=== PATIENT | female | born 1990 | race African-American/Black ===

== ENCOUNTER 2022-12-10 16:15 | Outpatient (REF) | payer OTHER, SELFPAY ==
--- NOTE | ~2022-12-10 | US_ITS ---
EXAMINATION: US THYROID CLINICAL INFORMATION: Nontoxic single thyroid nodule. COMPARISON: None available. TECHNIQUE: Linear transducer grayscale and color Doppler examination with attention to the region of the thyroid. FINDINGS: SIZE: Measurements of the thyroid lobes and nodules are given in sagittal, anteroposterior and transverse dimensions respectively. Right Thyroid Lobe: 5.4 x 2.6 x 2.8 cm, volume 19.8 mL. Parenchyma: The gland echotexture is homogeneous. Thyroid vascularity is normal. Left Thyroid Lobe: 5.9 x 3.0 x 3.2 cm, volume 29.6 mL. Parenchyma: The gland echotexture is homogeneous. Thyroid vascularity is normal. Isthmus: 1.5 cm in maximum AP dimension. Estimated total number of nodules greater than or equal to 1 cm: 7. Oxide Furnace Tender nodules are described as follows: 1. Location: Left isthmus. Size: 2.6 x 1.5 x 2.7 cm, volume 5.3 mL. Nodule characteristics: Composition: Solid (2). Echogenicity: Isoechoic (1). Shape: Not taller than wide (0). Margins: Lobulated (2). Echogenic Foci: None (0). ACR TI-RADS total points: 5 ACR TI-RADS category: 4 2. Location: Right isthmus inferior. Size: 1.2 x 0.7 x 0.9 cm, volume 0.36 mL. Nodule characteristics: Composition: Solid/almost completely solid (2). Echogenicity: Isoechoic (1). Shape: Not taller than wide (0). Margins: Smooth (0). Echogenic Foci: Punctate echogenic foci (3). ACR TI-RADS total points: 6 ACR TI-RADS category: 4 3. Location: Right mid. Size: 2.4 x 1.3 x 1.9 cm, volume 3.2 mL. Nodule characteristics: Composition: Mixed cystic and solid (1). Echogenicity: Anechoic (0). Shape: Not taller than wide (0). Margins: Smooth (0). Echogenic Foci: Punctate echogenic foci (3). ACR TI-RADS total points: 4 ACR TI-RADS category: 4 4. Location: Right mid. Size: 0.9 x 0.4 x 0.8 cm, volume 0.15 mL. Nodule characteristics: Composition: Solid (2). Echogenicity: Isoechoic (1). Shape: Not taller than wide (0). Margins: Smooth (0). Echogenic Foci: None (0). ACR TI-RADS total points: 3 ACR TI-RADS category: 3 5. Location: Right inferior. Size: 1.8 x 1.7 x 1.8 cm, volume 3.0 mL. Nodule characteristics: Composition: Solid (2). Echogenicity: Very hypoechoic (3). Shape: Not taller than wide (0). Margins: Smooth (0). Echogenic Foci: Peripheral calcifications (2). ACR TI-RADS total points: 7 ACR TI-RADS category: 5 6. Location: Right inferior. Size: 2.2 x 1.1 x 1.3 cm, volume 1.6 mL. Nodule characteristics: Composition: Mixed cystic and solid (1). Echogenicity: Hypoechoic (2). Shape: Not taller than wide (0). Margins: Smooth (0). Echogenic Foci: None (0). ACR TI-RADS total points: 3 ACR TI-RADS category: 3 7. Location: Left mid. Size: 2.4 x 2.5 x 3.1 cm, volume 9.8 mL. Nodule characteristics: Composition: Mixed cystic and solid (1). Echogenicity: Isoechoic (1). Shape: Not taller than wide (0). Margins: Smooth (0). Echogenic Foci: Punctate echogenic foci (3). ACR TI-RADS total points: 5 ACR TI-RADS category: 4 8. Location: Left inferior. Size: 2.5 x 2.5 x 2.5 cm, volume 8.1 mL. Nodule characteristics: Composition: Mixed cystic and solid (1). Echogenicity: Isoechoic (1). Shape: Not taller than wide (0). Margins: Smooth (0). Echogenic Foci: None (0). ACR TI-RADS total points: 2 ACR TI-RADS category: 2 NODES: No lymphadenopathy is seen in the tissue surrounding the thyroid gland. US/US thyroid IMPRESSION: 1. A 2.7 cm left thyroid isthmus nodule and a 3.1 cm mid left thyroid lobe nodule meet ACR biopsy criteria and are amenable to ultrasound-guided biopsy, if clinically indicated and not already performed. 2. There is a diffuse goiter. ACR TI-RADS RECOMMENDATION REFERENCE: Ultrasound-guided fine-needle aspiration, followup ultrasound, no further follow up. * TR1 (0 point) and TR2 (2 points): No FNA or follow up. * TR3 (3 points): FNA if more than or equal to 2.5 cm in maximum dimension, followup ultrasound in 1, 3 and 5 years if 1.5 to 2.4 cm in maximum dimension. * TR4 (4-6 points): FNA if more than or equal to 1.5 cm in maximum dimension, followup ultrasound in 1, 2, 3 and 5 years if 1 to 1.4 cm in maximum dimension. * TR5 (more than or equal to 7 points): FNA if more than or equal to 1 cm in maximum dimension, followup ultrasound every year for 5 years if 0.5 to 0.9 cm in maximum dimension. * TR3, TR4 or TR5 nodules that are below the size threshold for followup receive no follow up.
== END 2022-12-10 16:16 | disposition home or self-care (01) ==
LOC: HO.US 16:15
PROVIDERS: PCP Nurse Practitioner Family; Visit Provider Nurse Practitioner Family
DX: E04.1 Nontoxic single thyroid nodule (principal)
CPT/HCPCS: 76536

== ENCOUNTER 2023-01-04 13:35 | Outpatient (REF) | payer OTHER, SELFPAY ==
[2023-01-04 13:56] LABS: MANUAL DIFF FLAG NO
[2023-01-04 14:28] LABS: Basophils Absolute Auto 0.1 X10*3/uL (0.0-0.2); Basophils Percent Auto 0.3 % (0-2); Eosinophils Absolute Auto 0.3 X10*3/uL (0.0-0.4); Eosinophils Percent Auto 1.8 % (0-4); Hematocrit 36.7 % (37.0-47.0); Hemoglobin 11.1 g/dl (12.0-16.0); Imm Gran Pct Auto 0.7 % (0.0-0.4); Lymphocytes Absolute Auto 3.9 X10*3/uL (1.2-4.9); Lymphocytes Percent Auto 25.4 % (20-40); Mean Corpuscular HGB Conc 30.2 g/dl (31.0-35.0); Mean Corpuscular Hemoglobin 23.3 pg (27.0-33.0); Mean Corpuscular Volume 76.9 fL (80.0-98.0); Mean Platelet Volume 9.5 fL (9.4-12.3); Monocytes Absolute Auto 0.7 X10*3/uL (0.1-1.2); Monocytes Percent Auto 4.7 % (2-11); Neutrophils Absolute Auto 10.2 x10*3/uL (2.0-8.3); Neutrophils Percent Auto 67.1 % (45-73); Platelet Count 321 X10*3/uL (160-400); Red Blood Count 4.77 X10*6/uL (4.20-5.50); White Blood Count 15.2 X10*3/uL (4.8-10.8)
[2023-01-04 15:36] LABS: Alanine Aminotransferase 18 U/L (0-31); Albumin Level 4.1 g/dL (3.5-5.0); Alkaline Phosphatase 101 U/L (39-117); Anion Gap 12 (12-20); Aspartate Amino Transferase 17 U/L (5-31); Bilirubin Total 0.4 mg/dL (0.0-1.0); Blood Urea Nitrogen 13 mg/dL (9-16); Calcium 9.4 mg/dL (8.4-10.2); Carbon Dioxide 27 mmol/L (22-29); Chloride 102 mmol/L (96-108); Cholesterol 256 mg/dL; Estimated Glomerular Filt Rate > 60; Glucose Fasting 77 mg/dL (60-99); HDL Cholesterol 46 mg/dL; LDL Cholesterol Calculated 162 mg/dl; Potassium 4.4 mmol/L (3.3-5.1); Sodium 137 mmol/L (135-145); Triglycerides 242 mg/dL
[2023-01-04 16:07] LABS: TSH reflex Free T4 0.23 uIU/mL (0.32-4.0); Vitamin B12 225 pg/mL (200-900); Vitamin D 25-OH Total 12.7 ng/mL (>30)
[2023-01-04 16:38] LABS: Free T4 (Free Thyroxine) 0.95 ng/dL (0.71-1.85)
== END 2023-01-04 13:36 | disposition home or self-care (01) ==
LOC: HO.LAB 13:35
PROVIDERS: PCP Nurse Practitioner Family; Visit Provider Nurse Practitioner Family
DX: E04.2 Nontoxic multinodular goiter (principal); E55.9 Vitamin D deficiency, unspecified; L68.0 Hirsutism; Z76.89 Persons encountering health services in other specified circumstances
CPT/HCPCS: 36415; 80053; 80061; 82306; 82607; 82746; 84439; 84443; 85025; 99202

== ENCOUNTER 2023-01-05 06:49 | Outpatient (REF) | payer OTHER, SELFPAY ==
[2023-01-05 08:00] LABS: Estimated Average Glucose 108 mg/dL; Hemoglobin A1c % 5.4 %
[2023-01-05 08:07] LABS: Glucose Fasting 105 mg/dL (60-99)
[2023-01-05 08:15] LABS: Alanine Aminotransferase 17 U/L (0-31); Albumin Level 3.9 g/dL (3.5-5.0); Alkaline Phosphatase 93 U/L (39-117); Anion Gap 13 (12-20); Aspartate Amino Transferase 13 U/L (5-31); Bilirubin Total 0.5 mg/dL (0.0-1.0); Blood Urea Nitrogen 14 mg/dL (9-16); Calcium 9.3 mg/dL (8.4-10.2); Carbon Dioxide 24 mmol/L (22-29); Chloride 105 mmol/L (96-108); Estimated Glomerular Filt Rate > 60; Glucose Random 104 mg/dL (60-115); Potassium 4.2 mmol/L (3.3-5.1); Sodium 138 mmol/L (135-145); Total Protein 7.5 g/dL (6.5-8.0)
[2023-01-05 08:21] LABS: HCG Quantitative < 2 mIU/mL
[2023-01-05 08:26] LABS: Cortisol Random 14.3 ug/dL
[2023-01-05 09:26] LABS: Glucose 1 Hour 146 mg/dL
[2023-01-05 10:14] LABS: Glucose 2 Hour 113 mg/dL
[2023-01-06 23:29] LABS: LDL Cholesterol Direct 95 mg/dL (<100)
[2023-01-06 23:48] LABS: DHEA Sulfate 157 mcg/dL (19-237)
[2023-01-07 02:33] LABS: Follicle Stimulating Hormone 2.8 mIU/mL; Lutenizing Hormone 5.4 mIU/mL; Sex Hormone Binding Globulin 33 nmol/L (17-124)
[2023-01-11 12:48] LABS: Androstenedione 135 ng/dL
[2023-01-11 14:34] LABS: Adrenocorticotropic Hormone 31 pg/mL (6-50)
[2023-01-11 22:33] LABS: Estradiol Ultra Sensitive 167 pg/mL
[2023-01-15 13:32] LABS: Testosterone, Free 4.5 pg/mL (0.1-6.4); Testosterone, Total 31 ng/dL (2-45)
== END 2023-01-05 06:50 | disposition home or self-care (01) ==
LOC: HO.LAB 06:49
PROVIDERS: PCP Nurse Practitioner Family; Visit Provider Internal Medicine
DX: L68.0 Hirsutism (principal)
CPT/HCPCS: 36415; 80053; 82024; 82157; 82533; 82627; 82670; 83001; 83002; 83036; 83498; 83721; 84146; 84270; 84402; 84403; 84702

== ENCOUNTER 2023-04-06 13:38 | Outpatient (REF) | payer OTHER, SELFPAY ==
[2023-04-07 08:49] LABS: CT PCR NOT DETECTED (Not Detect.); NG PCR NOT DETECTED (Not Detect.)
[2023-04-07 08:50] LABS: BV Int Neg Control Negative (Negative); BV Int Pos Control Positive (Positive)
== END 2023-04-06 13:39 | disposition home or self-care (01) ==
LOC: HO.LAB 13:38
PROVIDERS: Visit Provider Advanced Practice Midwife
DX: E66.01 Morbid (severe) obesity due to excess calories (principal); Z68.42 Body mass index [BMI] 45.0-49.9, adult; Z20.2 Contact with and (suspected) exposure to infections with a predominantly sexual mode of transmission
CPT/HCPCS: 0353U; 87480; 87510; 87660

== ENCOUNTER 2023-04-06 13:38 | Outpatient (AMB) | payer OTHER, SELFPAY ==
[2023-04-06 14:14] VITALS: BP 132/76; BMI 51.5
--- NOTE | 2023-04-06 14:14 | MHC.OFFVIS ---
Intake Vital Signs 04/06/23 14:14 Height 5 ft 10 in Weight 359 lb BMI 51.5 BP 132/76 Intake Visit Reasons: New patient Annual/DO NOT RS Intake Note: First exam, pt has concerns of PCOS and poss fibroids, has heavy periods Surgical Scrub Technician: Surgical Scrub Technician Present (Rivka) Allergies No Known Allergies Allergy (Verified 04/06/23 14:18) Medication List - Last Reconciled 04/06/23 by Nicki Arthur CNM ascorbic acid (vitamin C) 250 mg PO DAILY cholecalciferol (vitamin D3) 50 mcg PO DAILY ferrous sulfate 324 mg PO DAILY loratadine (Claritin) 10 mg PO DAILY PRN Is last menstrual period known: Yes Last menstrual period: 03/11/23 HPI New patient Annual/DO NOT RS HPI Details Patient is here for what she thinks is going to be her 1st pelvic exam though she recounted during the visit that someone an outside of [place] had attempted to do a pelvic exam for her and had gotten very far, because of her discomfort. She has concerns that she might have PCOS and fibroids because they run in her family,(biologic family). She has been heavy much of her life but she lost a lot of the weight a few years ago by doing a lot of high intensity high impact training and eating very well. She is embarking on her new efforts to lose weight again because she believes she is now on a better mind set then she was ever before and she is intent on making lifestyle and life changes and not just dieting and weight loss. She is also engaged and maybe getting in August when she moves out to [facility]. She is also getting thyroid nodules worked up and will be having of thyroid biopsy coming up very soon she said she had a lot of fasting blood work and was told that she was all clear and did not have diabetes or prediabetes. She normally has very heavy menses but they are always very regular although this 1 this past month was the lightest. She has ever had but it came at the right time and it did last the same 5 days. She has not ever had full penetration sex though she has been intimate with her intended partner. She is very much hoping to have a pelvic exam today but she is very anxious about it. [facility] Medical History Encounter to establish care Hirsutism Multinodular thyroid Vitamin D deficiency Surgical History History of biopsy Hx of tonsillectomy Family History (Updated 04/06/23 @ 14:22 by KERLINE Martinez) Mother Congestive heart failure (CHF) Father Pancreatic cancer Maternal Grandmother History of breast cancer Social History (Updated 04/06/23 @ 14:24 by KERLINE Martinez) Housing: Apartment Alcohol intake: current Alcohol intake frequency: holidays/special occasions only Alcohol type: wine Patient Tobacco Use Status: Never used Tobacco service: No Current occupational status: employed Sexual orientation: Straight/Heterosexual Gender identity: Female Cognitive needs: No Hearing needs: No Vision needs: No Female Reproductive History Menstrual Duration of menses: 6-7 days Date of last menstrual period: 03/11/23 control method: none Total pregnancies: 0 Physical Exam Vital Signs: Last Vital Signs BP 132/76 04/06/23 14:14 BMI result Body Mass Index 51.5 Const Other: Some hirsutism noted General: healthy appearing, comfortable, no acute distress, well developed and alert Nutritional Appearance: average body habitus and obese Orientation/consciousness: patient oriented x3 Limitations: no limitations HEENT Head: Yes normocephalic Neck Neck: Yes normal visual inspection Chest Chest palpation & inspection: normal inspection of the chest Breast/axilla inspection: normal inspection of the breasts and normal inspection of the axillae Breast/axilla palpation: normal palpation of the breasts and normal palpation of the axillae Resp Effort & Inspection: normal respiratory effort GI Inspection: Yes normal to inspection, No Abdominal wall edema and No distended Palpation (GI): Soft to palpation and nontender Other: This is patient's 1st full pelvic exam done in 3 stages secondary to comfort level and at patient directed pace. External vulva within normal limits vagina pink moist clear mucus cervix nulliparous unable to palpate full uterus however no organomegaly or tenderness appreciated no organomegaly or tenderness appreciated in the adnexa patient had good pelvic tone a witnessed in initial attempts at pelvic exam. General: Yes bladder normal to palpation External Female Exam: normal external appearance and normal appearance of the urethra Speculum Exam - Vagina: normal appearance of the vagina, normal palpation and normal vaginal discharge Speculum Exam - Cervix: normal appearance of the cervix, normal palpation and nontender Bimanual exam- vagina & uterus: normal bimanual exam, normal palpation, uterine size normal, bladder normal to palpation, consistency normal, normal palpation, uterine mobility normal, uterine shape normal, No Cervical tenderness present, non-tender and no cervical motion tenderness Bimanual Exam- Adnexa, other: normal adnexae, no masses, normal and No adnexal tenderness Neuro General: patient oriented x3 Assessment & Plan Assessment & Plan (1) Morbid obesity with BMI of 50.0-59.9, adult: Code(s): E66.01 - Morbid (severe) obesity due to excess calories; Z68.43 - Body mass index [BMI] 50.0-59.9, adult (2) Cervical cancer screening: Code(s): Z12.4 - Encounter for screening for malignant neoplasm of cervix Plan -----Discussed in this visit the following: healthy balanced diet, regular and consistent exercise, getting recommended health screens, doing the best she can for her particular health concerns, kegel exercises, pap smear screening and followup recommendations, mammography screening and SBE, normal changes in cycles in her life stage--- .Discussed in general terms the challenges of obesity and challenges for her health and efforts she is engaging in to manage this including dietary changes water intake attention to sleep inclusion of a regular exercise have it and dealing with the may need stressors of life that can contribute to obesity in general. Encouraged her to continue in all have her best efforts. She is very clear at this point in her life what she needs to do and is embarking on her journey with renewed efforts and a new mind set and I wished her all the best. Discussed her continued evaluation with endocrinology and also the possibility that PCOS may exist and that her adult health clinical nurse specialist is evaluating her for other possibilities as well. Discussed PCOS in very general and also very specific terms and that in some ways it is not named very correctly but speaks to the syndrome of some of the history she has though she has regular periods. Also discussed the very likely possibility that she may have fibroids but we shall see with a pelvic ultrasound. Discussed that her hirsute is Um has already been addressed by the adult health clinical nurse specialist. Also discussed her impending marriage and what her thoughts are about childbearing and getting though I recommend very much that she avoid until she has achieved much of her weight loss goals. Discussed the risks of in the presence of extreme obesity, including hypertension and diabetes and other complications. She and her fiance are undecided about children and conception and she thinks her other ways to be a mother in this world. I encouraged her to avoid unprotected sex during times of ovulation which she says she is aware of and that way she can continue to work on her goals while not complicating her health and life for now also discussed decreasing fertility and challenges after age 33. I am ordering a pelvic ultrasound to just evaluate whether not she has fibroids or any other markers of PCOS and we will have a visit after that. Patient initially was too tense to allow for the speculum exam but decided very much to try 1 more time and so another attempt was done and hopefully the Pap will be adequate. bimanual had been done prior to that with the use of gel because at that point the patient had given up on the speculum exam. Pap as well as testing for GC chlamydia trichomoniasis bacterial vaginosis and yeast was done patient did not have any symptoms of any of these and discharge was clear and healthy. Orders: Orders Bacterial Vaginosis Panel Today Z20.2 - Contact with and (suspected) exposure to infections with a predominantly sexual mode of transmission CT NG by PCR Today Z20.2 - Contact with and (suspected) exposure to infections with a predominantly sexual mode of transmission US pelvic and transvaginal Today E66.01 - Morbid (severe) obesity due to excess calories, N92.0 - Excessive and frequent menstruation with regular cycle, Z12.4 - Encounter for screening for malignant neoplasm of cervix, Z68.43 - Body mass index [BMI] 50.0-59.9, adult Pap Smear Today Z01.419 - Encounter for gynecological examination (general) (routine) without abnormal findings Coding Level of Care Code New Pt Prev Care 18-39yr(69006 Diagnoses Morbid obesity with BMI of 50.0-59.9, adult E66.01; Z68.43 Cervical cancer screening Z12.4
== END 2023-04-06 15:52 | disposition home or self-care (01) ==
PROVIDERS: Visit Provider Advanced Practice Midwife
DX: Z01.419 Encounter for gynecological examination (general) (routine) without abnormal findings (principal); E66.01 Morbid (severe) obesity due to excess calories; Z68.43 Body mass index [BMI] 50.0-59.9, adult
CPT/HCPCS: 99385

== ENCOUNTER 2023-04-06 15:39 | Outpatient (REF) | payer OTHER, SELFPAY ==
[2023-04-09 03:04] LABS: HPV mRNA E6/E7 rflx Not Detected (Not Detected)
== END 2023-04-06 15:40 | disposition home or self-care (01) ==
LOC: HO.LNP 15:39
PROVIDERS: Visit Provider Advanced Practice Midwife
DX: Z01.419 Encounter for gynecological examination (general) (routine) without abnormal findings (principal)
CPT/HCPCS: 87624; 88142

== ENCOUNTER 2023-04-15 07:29 | Outpatient (REF) | payer OTHER, SELFPAY ==
--- NOTE | ~2023-04-15 | US_ITS ---
EXAMINATION: US PELVIS COMPLETE CLINICAL INFORMATION: Obesity; possible PCOS and fibroids. COMPARISON: None. TECHNIQUE: Transabdominal imaging was performed. FINDINGS: The uterus is of normal size and heterogeneous echogenicity, measuring 7.9 x 4.5 x 5.7 cm. The uterus is anteverted and anteflexed. A regular, homogeneous endometrium is identified measuring 1.9 cm. Nabothian cysts are seen within the cervix. FIBROIDS: There are 3 fibroids seen. 1. Location: Anterior upper body, myometrial. Size: 1.3 x 1.0 x 2.0 cm. Fibroid characteristics: Heterogeneously hypoechoic. 2. Location: Posterior upper body, myometrial. Size: 1.4 x 1.1 x 1.0 cm. Fibroid characteristics: Isoechoic. 3. Location: Anterior fundus, pedunculated subserosal. Size: 1.9 x 1.8 x 2.0 cm. Fibroid characteristics: Isoechoic Both ovaries are of normal size and echogenicity. The right ovary measures 2.8 x 1.6 x 2.4 cm for a volume of 5.4 mL. The left ovary measures 3.8 x 2.3 x 3.4 cm for a volume of 15.2 mL. The left ovary contains a 1.7 x 1.2 x 1.6 cm corpus luteum cyst, which requires no imaging follow-up. There is no pelvic free fluid. US/US pelvic and transvaginal IMPRESSION: 1. There are uterine fibroids. 2. Nabothian cysts are seen within the cervix.
[2023-04-15] MEDS: Lidocaine HCl 1 % MPF 5 ML VIAL SUBCUT (13:59)
== END 2023-04-15 07:30 | disposition home or self-care (01) ==
LOC: HO.US 07:29
PROVIDERS: PCP Nurse Practitioner Family; Visit Provider Internal Medicine
DX: Z12.4 Encounter for screening for malignant neoplasm of cervix (principal); N92.0 Excessive and frequent menstruation with regular cycle; E04.2 Nontoxic multinodular goiter; E66.01 Morbid (severe) obesity due to excess calories; Z68.43 Body mass index [BMI] 50.0-59.9, adult
CPT/HCPCS: 10005; 76830; 76856; 88172; 88173; 88177; 88305

== ENCOUNTER 2023-05-06 15:10 | Outpatient (AMB) | payer OTHER, SELFPAY ==
--- NOTE | 2023-05-06 15:10 | MHC.OFFVIS ---
Intake Intake Visit Reasons: TV Ultrasound follow up [employer] Cann[employer] Required: No Information Interpreted: non-clinical & clinical Allergies No Known Allergies Allergy (Verified 05/06/23 15:10) Is last menstrual period known: Yes Last menstrual period: 04/19/23 HPI HPI Comments History of Present Illness Details The patient scheduled tele health visit to discuss the results of pelvic ultrasound recently ordered by Nicki Arthur CNM. Pelvic ultrasound showed the following: The uterus is of normal size and heterogeneous echogenicity, measuring 7.9 x 4.5 x 5.7 cm. The uterus is anteverted and anteflexed. A regular, homogeneous endometrium is identified measuring 1.9 cm. Nabothian cysts are seen within the cervix. FIBROIDS: There are 3 fibroids seen. 1. Location: Anterior upper body, myometrial. Size: 1.3 x 1.0 x 2.0 cm. Fibroid characteristics: Heterogeneously hypoechoic. 2. Location: Posterior upper body, myometrial. Size: 1.4 x 1.1 x 1.0 cm. Fibroid characteristics: Isoechoic. 3. Location: Anterior fundus, pedunculated subserosal. Size: 1.9 x 1.8 x 2.0 cm. Fibroid characteristics: Isoechoic Both ovaries are of normal size and echogenicity. The right ovary measures 2.8 x 1.6 x 2.4 cm for a volume of 5.4 mL. The left ovary measures 3.8 x 2.3 x 3.4 cm for a volume of 15.2 mL. The left ovary contains a 1.7 x 1.2 x 1.6 cm corpus luteum cyst, which requires no imaging follow-up. There is no pelvic free fluid. The patient was seen by endocrinology or hirsutism and a Recent workup included FSH/LH= 2.8/5.4, prolactin within normal. Low TSH with normal free T4, normal DHEA-S 17 hydroxyprogesterone and testosterone total and free were within normal. Last H&H was 11.1/35.7, co testing was negative and GC/CT were negative The patient is experiencing heavy menstrual cycle associated with pelvic cramping, no pelvic pain or pressure symptoms. [facility] Medical History Hirsutism Vitamin D deficiency Multinodular thyroid Encounter to establish care Surgical History History of biopsy Hx of tonsillectomy Family History Mother Congestive heart failure (CHF) Father Pancreatic cancer Maternal Grandmother History of breast cancer Social History Housing: Apartment Alcohol intake: current Alcohol intake frequency: holidays/special occasions only Alcohol type: wine Patient Tobacco Use Status: Never used Tobacco service: No Current occupational status: employed Sexual orientation: Straight/Heterosexual Gender identity: Female Cognitive needs: No Hearing needs: No Vision needs: No Female Reproductive History Menstrual Duration of menses: 6-7 days Date of last menstrual period: 04/19/23 Review of Systems Const All systems reviewed & are unremarkable except as noted in HPI and below Reports as per HPI and Reports no additional complaints GI Reports no additional complaints Reports no additional complaints Assessment & Plan Assessment & Plan (1) Uterine myoma: Code(s): D25.9 - Leiomyoma of uterus, unspecified Plan: Discussed with the patient the findings on pelvic ultrasound & the risk of myosarcoma; discussed with the patient the options of treatment including expectant management versus hysterectomy; the pros and cons, risks benefits of each approach were discussed with the patient including the fact that in cases of myosarcoma, surgical treatment can lead to early diagnosis and positively affects the prognosis; after further discussion, the patient decided to proceed with expectant management. Will repeat pelvic ultrasound in 6 months. Instructions given to patient to call in case any of the following occurs: pressure symptoms, abnormal uterine bleeding, pelvic pain; and to schedule a 6 month follow-up appointment for repeat ultrasound . All questions answered, the patient verbalized understanding and agreed with the plan . (2) Abnormal uterine bleeding (AUB): Code(s): N93.9 - Abnormal uterine and vaginal bleeding, unspecified Plan: Discussed with the patient the results of her workup, recommended endometrial sampling to rule out endometrial pathology including endometrial hyperplasia and/or malignancy as a cause of her AUB given the fact that she has elevated BMI which is a risk factor for endometrial pathology. The patient will call and schedule an appointment for EMB. All questions answered, the patient verbalized understanding. I spent a total of 20 minutes reviewing the chart, talking to the patient via video and documenting in the medical record. Orders: Orders US pelvic and transvaginal 6 Months D25.9 - Leiomyoma of uterus, unspecified Telehealth Telehealth Location of provider rendering services: practice address Location of patient: address on file Patient Identification confirmed using: Name, : Yes Telehealth method: video Patient verbally consented to treatment: Yes Patient verbally consented to billing insurance company: Yes Patient informed of any privacy concerns related to visit: Yes Coding Level of Care Code Tele Est Pt Level 3 (50054) Diagnoses Uterine myoma D25.9 Abnormal uterine bleeding (AUB) N93.9
== END 2023-05-06 16:15 | disposition home or self-care (01) ==
PROVIDERS: PCP Nurse Practitioner Family; Visit Provider Advanced Practice Midwife
DX: D25.9 Leiomyoma of uterus, unspecified (principal); N93.9 Abnormal uterine and vaginal bleeding, unspecified
CPT/HCPCS: 99213

== ENCOUNTER → 2023-05-06 15:10 | Outpatient (BNVA) | payer OTHER, SELFPAY | PROVIDERS: PCP Nurse Practitioner Family; Visit Provider Advanced Practice Midwife ==

== ENCOUNTER 2023-05-11 09:52 | Outpatient (AMB) | payer OTHER, SELFPAY ==
--- NOTE | 2023-05-11 10:13 | MHC.OFFVIS ---
Intake Vital Signs 05/11/23 10:28 Height 5 ft 10 in Weight 134 lb 11.239 oz BMI 19.3 BP 122/80 Blood Pressure Location Lt brachial Position Sitting Pulse 82 Pulse Source Pulse Oximeter Intake Visit Reasons: FNA Results, appt confirmed Intake Note: Patient present for FNA rsults. 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 Patient previously saw Dr. Car on 01/04/2023 She was diagnosed with a multinodular thyroid 1 year ago. She reports having a nondiagnostic biopsy of her dominant nodule at [facility]. Currently denies any compressive symptoms. Denies any personal history of radiation to the head or the neck. She denies any family history of thyroid cancer. She also has hirsutism, which has been present since childhood. She denies any irregular menses. EXAMINATION: US THYROID CLINICAL INFORMATION: Nontoxic single thyroid nodule. COMPARISON: None available. TECHNIQUE: Linear transducer grayscale and color Doppler examination with attention to the region of the thyroid. FINDINGS: SIZE: Measurements of the thyroid lobes and nodules are given in sagittal, anteroposterior and transverse dimensions respectively. Right Thyroid Lobe: 5.4 x 2.6 x 2.8 cm, volume 19.8 mL. Parenchyma: The gland echotexture is homogeneous. Thyroid vascularity is normal. Left Thyroid Lobe: 5.9 x 3.0 x 3.2 cm, volume 29.6 mL. Parenchyma: The gland echotexture is homogeneous. Thyroid vascularity is normal. Isthmus: 1.5 cm in maximum AP dimension. Estimated total number of nodules greater than or equal to 1 cm: 7. Recruiting Manager nodules are described as follows: 1. Location: Left isthmus. Size: 2.6 x 1.5 x 2.7 cm, volume 5.3 mL. Nodule characteristics: Composition: Solid (2). Echogenicity: Isoechoic (1). Shape: Not taller than wide (0). Margins: Lobulated (2). Echogenic Foci: None (0). ACR TI-RADS total points: 5 ACR TI-RADS category: 4 2. Location: Right isthmus inferior. Size: 1.2 x 0.7 x 0.9 cm, volume 0.36 mL. Nodule characteristics: Composition: Solid/almost completely solid (2). Echogenicity: Isoechoic (1). Shape: Not taller than wide (0). Margins: Smooth (0). Echogenic Foci: Punctate echogenic foci (3). ACR TI-RADS total points: 6 ACR TI-RADS category: 4 3. Location: Right mid. Size: 2.4 x 1.3 x 1.9 cm, volume 3.2 mL. Nodule characteristics: Composition: Mixed cystic and solid (1). Echogenicity: Anechoic (0). Shape: Not taller than wide (0). Margins: Smooth (0). Echogenic Foci: Punctate echogenic foci (3). ACR TI-RADS total points: 4 ACR TI-RADS category: 4 4. Location: Right mid. Size: 0.9 x 0.4 x 0.8 cm, volume 0.15 mL. Nodule characteristics: Composition: Solid (2). Echogenicity: Isoechoic (1). Shape: Not taller than wide (0). Margins: Smooth (0). Echogenic Foci: None (0). ACR TI-RADS total points: 3 ACR TI-RADS category: 3 5. Location: Right inferior. Size: 1.8 x 1.7 x 1.8 cm, volume 3.0 mL. Nodule characteristics: Composition: Solid (2). Echogenicity: Very hypoechoic (3). Shape: Not taller than wide (0). Margins: Smooth (0). Echogenic Foci: Peripheral calcifications (2). ACR TI-RADS total points: 7 ACR TI-RADS category: 5 6. Location: Right inferior. Size: 2.2 x 1.1 x 1.3 cm, volume 1.6 mL. Nodule characteristics: Composition: Mixed cystic and solid (1). Echogenicity: Hypoechoic (2). Shape: Not taller than wide (0). Margins: Smooth (0). Echogenic Foci: None (0). ACR TI-RADS total points: 3 ACR TI-RADS category: 3 7. Location: Left mid. Size: 2.4 x 2.5 x 3.1 cm, volume 9.8 mL. Nodule characteristics: Composition: Mixed cystic and solid (1). Echogenicity: Isoechoic (1). Shape: Not taller than wide (0). Margins: Smooth (0). Echogenic Foci: Punctate echogenic foci (3). ACR TI-RADS total points: 5 ACR TI-RADS category: 4 8. Location: Left inferior. Size: 2.5 x 2.5 x 2.5 cm, volume 8.1 mL. Nodule characteristics: Composition: Mixed cystic and solid (1). Echogenicity: Isoechoic (1). Shape: Not taller than wide (0). Margins: Smooth (0). Echogenic Foci: None (0). ACR TI-RADS total points: 2 ACR TI-RADS category: 2 NODES: No lymphadenopathy is seen in the tissue surrounding the thyroid gland. US/US thyroid IMPRESSION: 1. A 2.7 cm left thyroid isthmus nodule and a 3.1 cm mid left thyroid lobe nodule meet ACR biopsy criteria and are amenable to ultrasound-guided biopsy, if clinically indicated and not already performed. 2. There is a diffuse goiter. She is status post FNA of 2 right thyroid nodule 1 which is benign and the 2nd which is nondiagnostic [facility] Medical History Hirsutism Vitamin D deficiency Multinodular thyroid Encounter to establish care Surgical History History of biopsy Hx of tonsillectomy Family History Mother Congestive heart failure (CHF) Father Pancreatic cancer Maternal Grandmother History of breast cancer Social History Housing: Apartment Alcohol intake: current Alcohol intake frequency: holidays/special occasions only Alcohol type: wine Patient Tobacco Use Status: Never used Tobacco service: No Current occupational status: employed Sexual orientation: Straight/Heterosexual Gender identity: Female Cognitive needs: No Hearing needs: No Vision needs: No Physical Exam Vital Signs: Last Vital Signs Pulse 82 05/11/23 10:28 BP 122/80 05/11/23 10:28 BMI result Body Mass Index 19.3 Const Other: Thyroid gland is large in size weighs about 45 g. The lower border of the thyroid cannot be palpated. There is a negative Carline sign Assessment & Plan Assessment & Plan (1) Multinodular thyroid: Code(s): E04.2 - Nontoxic multinodular goiter Plan: This is a 32-year-old black female with a history of multinodular goiter status post FNA to right thyroid nodule 1 which was benign and the 2nd which was nondiagnostic. She also has a left isthmus nodule that meets criteria for FNA. Plan is discussed with patient possible options of treatment including reaspiration of right nodule and left nodule versus possible thyroidectomy. Patient is moving to [place] next month and is going to follow-up there with jigger operator. I gave her the name of a specialist at [facility]. I did not address any issues surrounding the polycystic ovarian syndrome at today's visit Coding Level of Care Code Est Pt Level 3 (43460) Diagnoses Multinodular thyroid E04.2
[2023-05-11 10:28] VITALS: BP 122/80; PULSE 82; BMI 19.3
== END 2023-05-11 11:04 | disposition home or self-care (01) ==
PROVIDERS: PCP Nurse Practitioner Family; Visit Provider Internal Medicine Endocrinology, Diabetes & Metabolism
DX: E04.2 Nontoxic multinodular goiter (principal)
CPT/HCPCS: 99213

== ENCOUNTER → 2023-05-11 09:52 | Outpatient (BNVA) | payer OTHER, SELFPAY | PROVIDERS: PCP Nurse Practitioner Family; Visit Provider Internal Medicine Endocrinology, Diabetes & Metabolism | DX: E04.2 Nontoxic multinodular goiter (principal) | CPT/HCPCS: 99212 ==